=== PATIENT | male | born 1955 | race Caucasian/White ===

== ENCOUNTER 2020-03-13 09:23 | Day surgery (SDC) | payer OTHER ==
[~2020-03-13] VITALS: Ht 165.1 cm; Wt 104.9 kg
[~2020-03-13 09:23] MED LIST: ALLEGRA ALLERGY60 MG; AMLO5; BENADRYL25 MG PO; CENTRUM SILVER1 EAC1; Cialis5 MG PO; EPIPEN 2-P0.3 MG/0.3; EZET10; EZET10-80; EZET10-80 PO; FEXPSEER PO; GLUCOSAMIN-CHO1 EACH; HYDRA25; Hydrochlorothia25 MG PO; IBUP800; LORA10; NASACORT10.8 ML; NEBI5 PO; OXYB5ER PO; POTA10T; SIMV80; TAMS.4ER; TERB250 PO; TRAM50; ZOLP10 PO
--- NOTE | 2020-03-13 10:20 | NUR ---
03/13/20 1020 Yojana Espinoza BLOOD DRAWN FOR PRP, ANTICOAGULANT ADDED AND DELIVERED TO OR AND SPUN.
[2020-03-13] MEDS ORDERED: MONT10T (10:34)
--- NOTE | 2020-03-13 12:45 | NUR ---
03/13/20 1245 Precious Ambriz 1 MG EPI ADDED TO EACH OF THE FIRST 3 BAGS OF LR FOR IRRIGATION
--- NOTE | 2020-03-13 15:36 | NUR ---
03/13/20 1535 BRADY,ANJUM PATIENT CONTINUES TO HAVE SHORTNESS OF BREATH, PATIENT O2 SATS ARE APPROX 87-91% ON RA, WITH 2 L VIA NC O2 SATS INCREASE TO 94-96%, PATIENT STATES THAT IT FEELS LIKE HE IS UNABLE TO GET A FULL BREATH, DURAN IS ALSO HYPERTENSIVE IN THE 180-200S SYSTOLICALLY, DR. ALFORD NOTIFIED, AND AT THE BEDSIDE TO ASSESS PATIENT, ORDERS OBTAINED FOR STAT CHEST X RAY, ORDER PLACED AND RADIOLOGY NOTIFIED, NO FURTHER ORDERS NOTED AT THIS TIME
== END 2020-03-13 16:25 | disposition home or self-care (01) ==
LOC: ORSCSDS 09:23
PROVIDERS: Orthopaedic Surgery
PROC: 0LQ14ZZ Repair Right Shoulder Tendon, Percutaneous Endoscopic Approach (ICD-10-PCS; principal; 2020-03-13 11:00)
PROC: 0LU14KZ Supplement Right Shoulder Tendon with Nonautologous Tissue Substitute, Percutaneous Endoscopic Approach (ICD-10-PCS; principal; 2020-03-13 11:00)
PROC: 0RNJ4ZZ Release Right Shoulder Joint, Percutaneous Endoscopic Approach (ICD-10-PCS; principal; 2020-03-13 11:00)
DX: M75.121 Complete rotator cuff tear or rupture of right shoulder, not specified as traumatic (principal); M75.41 Impingement syndrome of right shoulder; I10 Essential (primary) hypertension; Z79.899 Other long term (current) drug therapy; E66.01 Morbid (severe) obesity due to excess calories; Z68.38 Body mass index [BMI] 38.0-38.9, adult
CPT/HCPCS: 71045; A9270-GY; C1713; J0171; J2060; J2250; J3010; J7120

== ENCOUNTER 2022-12-02 05:43 | Day surgery (SDC) | payer OTHER ==
[~2022-12-02] VITALS: Ht 162.6 cm; Wt 95.3 kg
[2022-12-02] VITALS (19 sets, daily range): BP systolic 55–159; BP diastolic 34–93
[~2022-12-02 05:43] MED LIST changes: +ANDRODERM1 EAC3 INJ; +ELIQUIS5 M2 PO; +MONT10T PO; +NAPR220 PO; +Oxybutynin Chlo10 MG PO; -POTA10T; +POTA10T PO; +VITAMIN B125000 MC1 INJ; +[UNRECOGNIZED DRUG - OTHER] PO
--- NOTE | 2022-12-02 10:40 | NUR ---
ARRIVAL TO UNIT VIA HOSPITAL BED. DROWSY, BUT APPROP. ASSESSMENT A CHARTED. SIPS OF WATER GIVEN. DENIES N/V.
--- NOTE | 2022-12-02 13:08 | NUR ---
12/02/22 1308 Clementina Rosales VERIFICATIONS: EDIT CHART.
--- NOTE | 2022-12-02 17:27 | NUR ---
SHIFT SUMMARY PT HAS DONE WELL POST-OP. PAIN WELL CONTROLLED. WORKED w/ THERAPY. EATING, DRINKING, VOIDING.
[2022-12-03 00:31] VITALS: BP 129/80
[2022-12-03 04:03] VITALS: BP 159/91
[2022-12-03 04:06] VITALS: BP 144/80
[2022-12-03 05:22] LABS: BASOPHILS ABSOLUTE AUTO 0.02 K/mm3 (0.00-0.23); BASOPHILS PERCENT AUTO 0 % (0-2); EOSINOPHILS PERCENT AUTO 0 % (0-6); Hematocrit 45.9 % (37.0-53.0); Hemoglobin 16.5 g/dL (13.5-17.5); IMMATURE GRAN PERCENT AUTO 1 % (0-1); LYMPHOCYTES ABSOLUTE AUTO 1.27 K/mm3 (0.84-5.20); LYMPHOCYTES PERCENT AUTO 8 % (21-46); MONOCYTES PERCENT AUTO 8 % (4-13); Mean Corpuscular HGB 33.7 pg (26.0-34.0); Mean Corpuscular HGB Conc 35.9 g/dL (31.5-36.5); Mean Corpuscular Volume 94 fL (80-100); Mean Platelet Volume 9.5 fL (9.1-12.4); NEUTROPHILS ABSOLUTE AUTO 14.22 K/mm3 (1.96-9.15); NEUTROPHILS PERCENT AUTO 84 % (41-73); Platelet Count 234 K/mm3 (150-400); RDW Coefficient Variation 11.8 % (11.7-14.2); RDW Standard Deviation 40.9 fL (35.1-46.3); White Blood Cell Count 16.91 K/mm3 (4.00-11.30)
--- NOTE | 2022-12-03 05:35 | NUR ---
SHIFT SUMMARY NOC. PT IS POD #1 FOR ELECTIVE RIGHT TOTAL HIP ARTHROPLASTY. PT'S RIGHT LATERAL AQUACEL DRESSING IS CLEAN, DRY, AND INTACT. PT ABLE TO AMBULATE TO THE BR WITH STAFF ASSISTANCE. PT MEDICATED FOR POST SURGICAL PAIN PER EMAR ORDERS. PT REPORTED RELIEF WITH MEDICATION. PT TOLERATING PO LIQUIDS. PT HAS A HX OF AFIB AND DENIES SOB OR CHEST PAIN DURING THIS SHIFT.
[2022-12-03 05:42] LABS: Calcium, Blood 8.6 mg/dL (8.5-10.1); Creatinine, Blood 0.9 mg/dL (0.60-1.20); Potassium, Blood 3.4 mmol/L (3.5-5.5)
[2022-12-03] MEDS ORDERED: Percocet 5-3251 EACH PO (07:40)
[2022-12-03 07:45] VITALS: BP 146/80
--- NOTE | 2022-12-03 09:47 | NUR ---
DISCHARGE PT HAS CLEARED THERAPY. PAIN WELL CONTROLLED. EATING, DRINKING, & VOIDING WELL. DRSGS, SCRIPT, & POLAR PACK SENT w/ PT. ESCORTED OUT VIA W/C.
== END 2022-12-03 09:48 | disposition home or self-care (01) ==
LOC: ORSCMMR 05:43 → ORD 07:30 → ORSCMMR 07:30 → SURS 10:24 → ORSCMMR 12-03 09:48
PROVIDERS: Orthopaedic Surgery
PROC: 0SR90JZ Replacement of Right Hip Joint with Synthetic Substitute, Open Approach (ICD-10-PCS; principal; 2022-12-02 07:30)
DX: M16.11 Unilateral primary osteoarthritis, right hip (principal); Z87.891 Personal history of nicotine dependence; E66.9 Obesity, unspecified; Z68.36 Body mass index [BMI] 36.0-36.9, adult; Z79.899 Other long term (current) drug therapy; I48.91 Unspecified atrial fibrillation; I10 Essential (primary) hypertension; Z79.01 Long term (current) use of anticoagulants
CPT/HCPCS: 27130; 0055T; 36415; 72170; 80048; 85025; 97110; 97116; 97162; A9270; C1776; J0171; J0690; J0735; J1100; J1885; J2250; J2405; J2704; J2795; J3010; J7120

== ENCOUNTER → 2023-02-03 | Outpatient (CLI) | payer OTHER ==
[~2023-02-03] MED LIST changes: +Percocet 5-3251 EACH PO
[2023-02-03 10:08] LABS: BASOPHILS ABSOLUTE AUTO 0.05 K/mm3 (0.00-0.23); BASOPHILS PERCENT AUTO 1 % (0-2); EOSINOPHILS ABSOLUTE AUTO 0.14 K/mm3 (0.00-0.68); EOSINOPHILS PERCENT AUTO 2 % (0-6); Hematocrit 51.3 % (37.0-53.0); Hemoglobin 18.2 g/dL (13.5-17.5); IMMATURE GRAN ABSOLUTE AUTO 0.04 K/mm3 (0.00-0.10); IMMATURE GRAN PERCENT AUTO 1 % (0-1); LYMPHOCYTES ABSOLUTE AUTO 1.58 K/mm3 (0.84-5.20); LYMPHOCYTES PERCENT AUTO 22 % (21-46); MONOCYTES ABSOLUTE AUTO 0.56 K/mm3 (0.16-1.47); MONOCYTES PERCENT AUTO 8 % (4-13); Mean Corpuscular HGB 34.3 pg (26.0-34.0); Mean Corpuscular HGB Conc 35.5 g/dL (31.5-36.5); Mean Corpuscular Volume 97 fL (80-100); Mean Platelet Volume 8.8 fL (9.1-12.4); NEUTROPHILS ABSOLUTE AUTO 4.82 K/mm3 (1.96-9.15); NEUTROPHILS PERCENT AUTO 67 % (41-73); Platelet Count 222 K/mm3 (150-400); RDW Coefficient Variation 13.3 % (11.7-14.2); RDW Standard Deviation 47.9 fL (35.1-46.3); Red Blood Cell Count 5.31 M/mm3 (4.30-5.90); White Blood Cell Count 7.19 K/mm3 (4.00-11.30)
[2023-02-03 10:17] LABS: Albumin, Blood 3.7 g/dL (3.4-5.0); Albumin/Globulin Ratio 1.1 (0.8-1.8); Bilirubin, Total 0.3 mg/dL (0.1-1.0); Bun/Creatinine Ratio 15.2 (12.0-20.0); Creatinine, Blood 0.79 mg/dL (0.60-1.20); Globulin, Blood 3.4 g/dL (2.2-4.0); Potassium, Blood 4.1 mmol/L (3.5-5.5); Total Protein, Blood 7.1 g/dL (6.4-8.2)
== END | disposition home or self-care (01) ==
LOC: LAB 10:01 → LAB SHORT 10:01
PROVIDERS: Chiropractor
DX: N39.0 Urinary tract infection, site not specified (principal)
CPT/HCPCS: 80053; 85025; 87086